=== PATIENT | female | born 1950 | race Caucasian/White ===

== ENCOUNTER → 2021-05-21 09:41 | Outpatient (CLI) | payer MEDICARE, BC, SELFPAY ==
--- NOTE | 2021-05-21 09:44 | DI.MRI.S_ITS ---
PROCEDURE: MR LUMBAR SPINE WO CON INDICATIONS: Radiculopathy, lumbar region TECHNIQUE: Noncontrast sagittal T1 spin echo and T2 fast echo, sagittal STIR, axial T1 and T2 fast spin echo through the lumbar spine. In cases with scoliosis, additional coronal T2 fast spin echo may be performed. COMPARISON: None. FINDINGS: Image quality: Excellent. Alignment and Curvature: There is normal bony alignment. Bone Marrow: Marrow is of normal overall signal. No acute vertebral body compression fractures. Spinal Cord: Conus medullaris terminates at the T12-L1 level. Visualized cord demonstrates normal signal and size. Paraspinous Soft Tissues: No paravertebral masses. T12-L1: There is loss of disc height and disc signal. Central to left-sided disc bulge and bilateral facet arthrosis is seen with mild effacement of thecal sac anteriorly, no significant neural foraminal narrowing. L1-L2: There is loss of disc height and disc signal. Broad-based disc bulge and bilateral facet arthrosis is seen with mild central canal stenosis, no significant neural foraminal narrowing. L2-L3: Loss of disc height and disc signal is seen. Broad-based disc bulge and bilateral facet arthrosis is noted with mild to moderate central canal stenosis and mild left-sided neural foraminal narrowing. L3-L4: There is loss of disc height and disc signal. Broad-based, more right-sided disc bulge and bilateral facet arthrosis is seen with hypertrophy of ligamentum flavum. There is moderate central canal stenosis and right-sided neural foraminal narrowing. L4-L5: There is loss of disc height and disc signal. Broad-based disc bulge and bilateral facet arthrosis with hypertrophy of ligamentum flavum is seen causing severe central canal stenosis and bilateral neural foraminal narrowing. L5-S1: Loss of disc height and disc signal is seen. Diffuse disc bulge and bilateral facet arthrosis is seen. There is mild to moderate central canal stenosis and moderate to severe left-sided neural foraminal narrowing. Mild right-sided neural foraminal narrowing is also seen. There is likely mild compression of bilateral exiting L5 nerve roots. IMPRESSION: 1. No marrow edema. No compression fracture or spondylolisthesis. 2. Degenerative disc bulge and bilateral facet arthrosis throughout lumbar spine more prominent at L4-5 and L5-S1 levels as described above. Dictated by: Stewart Cabrales M.D. on 05/21/2021 at 12:42 Approved by: Stewart Cabrales M.D. on 05/21/2021 at 12:55
== END ==
PROVIDERS: Family Provider Family Medicine; PCP Family Medicine; Referring Provider Anesthesiology Pain Medicine; Visit Provider Anesthesiology Pain Medicine
DX: M54.16 Radiculopathy, lumbar region (principal)
CPT/HCPCS: 72148

== ENCOUNTER 2021-07-08 09:27 | Outpatient (CLI) | payer MEDICARE, BC, SELFPAY ==
[2021-07-08] VITALS (12 sets, daily range): BP systolic 80–108; BP diastolic 50–68; PULSE 47–60; RESP 15–25; TEMP 36.6; O2SAT 93–99
--- NOTE | 2021-07-08 09:28 | DI.RAD.S_ITS ---
PROCEDURE: PAIN L/S TRANSFORAM INJECT RICA COMPARISON: Outside Facility, RG, XR L-SPINE 4-6V, 06/28/2021, 15:47. INDICATIONS: SPONDYLOSIS FINDINGS: Fluoroscopic spot filming was performed to verify placement of a spinal needle on the right at the L3-L4 level a spinal needle on the left at the L5-S1 level, as labeled on the films. Appropriate location of the needle tips was confirmed by injection of iodinated contrast. IMPRESSION: No significant intraprocedural abnormality. Dictated by: Bassam Araiza M.D. on 07/08/2021 at 10:51 Approved by: Bassam Araiza M.D. on 07/08/2021 at 10:52
[2021-07-08] MEDS: fentaNYL 100 MCG/2 ML INJ (10:35)
[2021-07-08] MEDS: MIDAZOLAM 5 MG/5 ML VIAL IV (10:35)
[2021-07-08] MEDS: BETAMETHASONE 30 MG/5 ML MDV (10:39)
[2021-07-08] MEDS: BUPIVACAINE 0.25% (PF) VIAL 30 ML (10:39)
[2021-07-08] MEDS: IOPAMIDOL 15 ML VIAL INJ (10:39)
[2021-07-08] MEDS: DEXAMETHASONE 10 MG/ML VIAL 20 MG (10:40)
--- NOTE | 2021-07-08 11:00 | P.PCN_ITS ---
Date/Time/Diagnoses Date of procedure: 07/08/21 Time of procedure: 11:00 Pre-procedure diagnosis: 1. FORAMINAL STENOSIS WITH LE SYMPTOMS Post-procedure diagnosis: same Procedure Notes Procedure: 1. FLUOROSCOPICALLY GUIDED CONTRAST CONTROLLED TRANSFORAMINAL EPIDURAL STEROID INJECTION - Left L5/S1 Indications: Karol is referred by Dr. Boucher for treatment of Foraminal Stenosis with Left LE Symptoms Physician: Cesar Licona Total Fluoroscopy time (seconds): 21 Total sedation minutes: 14 Complications: none Procedure in detail & Post-procedure care: FINDINGS Foraminal Nerve Root Compression secondary to disc disease and facet hypertrophy DESCRIPTION OF PROCEDURE Following review of allergy and review of potential side effects and complications, including, but not necessarily limited to, infection, allergic reaction, local tissue breakdown, stroke, temporary or permanent nerve injury, paralysis, and possible , the patient indicated that the patient understood and agreed to proceed. An informed consent document was signed by the patient, witnessed by a nurse, and placed in the patient's chart. Additionally, other treatment options including medications, modalities, and physical therapy were reviewed with the patient. After review of previous anaesthesic history and IV conscious sedation the patient was deemed safe to proceed with today?s procedure with IV conscious sedation as ASA class II designation. Safety time-out was performed to confirm patient ID, procedure to be performed and site of procedure. IV sedation was accomplished with a combination of 2mg of Versed and 50mcg of Fentanyl was administered by the RN after DO order, titrated to patient comfort during the course of the procedure while the patient remained responsive to all verbal commands In the prone position following sterile prep and drape of the lumbar region, the Left L5/S1 posterior neuroforamen was identified fluoroscopically. The skin was anesthetized via a 25-gauge 1.5-inch needle with 1% lidocaine solution. At this point, a 25-gauge 3.5-inch spinal needle was atraumatically introduced and advanced under fluoroscopic guidance through the posterior Left L5/S1 neurofor amen to approximately the anterior aspect of the canal. Depth was confirmed on lateral view. Following negative aspiration, injection of approximately 1.5 cc of Isovue 200 under live fluoroscopy in the AP view confirmed excellent flow along the nerve root, into the epidural space without vascular or intrathecal uptake observed Radiological data, including multiple fluoroscopic views of the lumbosacral spine, reveal a spinal needle at the Left L5/S1 posterior neuroforamen. Subsequent views show flow of contrast material flowing superiorly and inferiorly along the nerve root confirming epidural flow. Subsequently, a test dose of 1.5 cc of 1% lidocaine solution was administered and patient was observed for two minutes for signs or symptoms of complications, including abdominal pain, shortness of breath, bilateral upper or lower extremity weakness, nausea and vomiting, prior to steroid injection. At this point, a total of 3cc or 20mg of dexamethasone and 6mg of betamethasone was injected without incident. The procedure tolerated the procedure well without signs or symptoms of complications prior to transfer to the recovery area continued monitoring without incident. The patient was then transferred to the recovery area where they were observed for an appropriate time after the injection. The patient reported a VAS score of 7 prior to the procedure and a post-procedure VAS of 0. POST OP INSTRUCTIONS The patient was provided a Pain Log to continue to record their response to the target-specific procedure prior to follow-up visit with their referring physician. Additionally, specific post-injection care instructions and a contact number to our office were provided if concerns arise regarding possible complications associated with the procedure are suspected.
--- NOTE | 2021-07-08 11:01 | P.PCN_ITS ---
Date/Time/Diagnoses Date of procedure: 07/08/21 Time of procedure: 11:01 Pre-procedure diagnosis: 1. FORAMINAL STENOSIS WITH LE SYMPTOMS Post-procedure diagnosis: same Procedure Notes Procedure: 1. FLUOROSCOPICALLY GUIDED CONTRAST CONTROLLED TRANSFORAMINAL EPIDURAL STEROID INJECTION - RIGHT L3/4 TFESI Indications: Karol is referred by Dr. Boucher for treatment of Foraminal Stenosis with right LE Symptoms Physician: Cesar Liocna Total Fluoroscopy time (seconds): 21 Total sedation minutes: 14 Complications: none Procedure in detail & Post-procedure care: FINDINGS Foraminal Nerve Root Compression secondary to disc disease and facet hypertrophy DESCRIPTION OF PROCEDURE Following review of allergy and review of potential side effects and complications, including, but not necessarily limited to, infection, allergic reaction, local tissue breakdown, stroke, temporary or permanent nerve injury, paralysis, and possible , the patient indicated that the patient understood and agreed to proceed. An informed consent document was signed by the patient, witnessed by a nurse, and placed in the patient's chart. Additionally, other treatment options including medications, modalities, and physical therapy were reviewed with the patient. After review of previous anaesthesic history and IV conscious sedation the patient was deemed safe to proceed with today?s procedure with IV conscious sedation as ASA class II designation. Safety time-out was performed to confirm patient ID, procedure to be performed and site of procedure. IV sedation was accomplished with a combination of 2mg of Versed and 50mcg of Fentanyl was administered by the RN after DO order, titrated to patient comfort during the course of the procedure while the patient remained responsive to all verbal c ommands In the prone position following sterile prep and drape of the lumbar region, the right L3/4 posterior neuroforamen was identified fluoroscopically. The skin was anesthetized via a 25-gauge 1.5-inch needle with 1% lidocaine solution. At this point, a 25-gauge 3.5-inch spinal needle was atraumatically introduced and advanced under fluoroscopic guidance through the posterior right L3/4 lamar roforamen to approximately the anterior aspect of the canal. Depth was confirmed on lateral view. Following negative aspiration, injection of approximately 1.5 cc of Isovue 200 under live fluoroscopy in the AP view confirmed excellent flow along the nerve root, into the epidural space without vascular or intrathecal uptake observed Radiological data, including multiple fluoroscopic views of the lumbosacral spine, reveal a spinal needle at the right L3/4 posterior neuroforamen. Subsequent views show flow of contrast material flowing superiorly and inferiorly along the nerve root confirming epidural flow. Subsequently, a test dose of 1.5 cc of 1% lidocaine solution was administered and patient was observed for two minutes for signs or symptoms of complications, including abdominal pain, shortness of breath, bilateral upper or lower extremity weakness, nausea and vomiting, prior to steroid injection. At this point, a total of 3cc or 20mg of dexamethasone and 6mg of betamethasone was injected without incident. The patient tolerated the procedure well without signs or symptoms of complications prior to transfer to the recovery area continued monitoring without incident. The patient was then transferred to the recovery area where they were observed for an appropriate time after the injection. The patient reported a VAS score of 7 prior to the procedure and a post-procedure VAS of 0. POST OP INSTRUCTIONS The patient was provided a Pain Log to continue to record their response to the target-specific procedure prior to follow-up visit with their referring physician. Additionally, specific post-injection care instructions and a contact number to our office were provided if concerns arise regarding possible complications associated with the procedure are suspected.
== END 2021-07-08 11:35 | disposition home or self-care (01) ==
LOC: RAD 09:28
PROVIDERS: Family Provider Family Medicine; PCP Family Medicine; Referring Provider Physical Medicine & Rehabilitation; Visit Provider Physical Medicine & Rehabilitation
DX: M48.07 Spinal stenosis, lumbosacral region (principal); M51.17 Intervertebral disc disorders with radiculopathy, lumbosacral region; M48.061 Spinal stenosis, lumbar region without neurogenic claudication; M51.16 Intervertebral disc disorders with radiculopathy, lumbar region
CPT/HCPCS: 64483; 99152; J0702; J1100; J2250; J3010